=== PATIENT | male | born 1985 | race Caucasian/White ===

== ENCOUNTER 2016-10-26 13:42 | Outpatient (CLI) | payer OTHER | END 2016-10-26 13:43 | disposition home or self-care (01) | DX: G47.21 Circadian rhythm sleep disorder, delayed sleep phase type (principal); G47.09 Other insomnia ==

== ENCOUNTER 2016-12-07 19:48 | Outpatient (CLI) | payer OTHER | END 2016-12-07 19:49 | disposition home or self-care (01) | LOC: SC 19:48 | PROVIDERS: ATTEND Internal Medicine Pulmonary Disease | DX: G47.33 Obstructive sleep apnea (adult) (pediatric) (principal); Z68.32 Body mass index [BMI] 32.0-32.9, adult | CPT/HCPCS: 95810 ==

== ENCOUNTER 2017-01-26 14:25 | Outpatient (CLI) | payer OTHER | END 2017-01-26 14:26 | disposition home or self-care (01) | LOC: SC 14:25 | PROVIDERS: ATTEND Nurse Practitioner Family | DX: G47.33 Obstructive sleep apnea (adult) (pediatric) (principal) | CPT/HCPCS: 99212; 99214 ==

== ENCOUNTER 2017-03-15 14:06 | Outpatient (CLI) | payer OTHER | END 2017-03-15 14:07 | disposition home or self-care (01) | LOC: SC 14:06 | PROVIDERS: ATTEND Nurse Practitioner Family | DX: G47.33 Obstructive sleep apnea (adult) (pediatric) (principal) | CPT/HCPCS: 99212; 99214 ==

== ENCOUNTER 2017-04-15 13:29 | Outpatient (CLI) | payer OTHER | END 2017-04-15 13:30 | disposition home or self-care (01) | LOC: SC 13:29 | PROVIDERS: ATTEND Nurse Practitioner Family | DX: G47.33 Obstructive sleep apnea (adult) (pediatric) (principal); G47.00 Insomnia, unspecified | CPT/HCPCS: 99212; 99214 ==

== ENCOUNTER 2017-05-05 13:28 | Outpatient (CLI) | payer OTHER | END 2017-05-05 13:29 | disposition home or self-care (01) | LOC: SC 13:28 | PROVIDERS: ATTEND Nurse Practitioner Family | DX: G47.33 Obstructive sleep apnea (adult) (pediatric) (principal) | CPT/HCPCS: 99212; 99214 ==

== ENCOUNTER 2017-08-05 13:14 | Outpatient (CLI) | payer OTHER | END 2017-08-05 13:15 | disposition home or self-care (01) | LOC: SC 13:14 | PROVIDERS: ATTEND Nurse Practitioner Family | DX: G47.33 Obstructive sleep apnea (adult) (pediatric) (principal) | CPT/HCPCS: 99212; 99214 ==